=== PATIENT | female | born 2000 | race African-American/Black ===

== ENCOUNTER 2021-01-14 19:27 | Emergency (ER) | payer OTHER, MEDICAID ==
[~2021-01-14] VITALS: Ht 167.6 cm; Wt 95.3 kg
[2021-01-14 21:18] LABS: ABSOLUTE BASOPHILS 0.1 thou/uL (0.0-0.2); ABSOLUTE EOSINOPHILS 0.2 thou/uL (0.0-0.7); ABSOLUTE LYMPHOCYTES 2.5 thou/uL (0.8-5.3); ABSOLUTE MONOCYTES 0.8 thou/uL (0.0-1.2); ABSOLUTE NEUTROPHILS 6.4 thou/uL (1.6-8.1); BASOPHILS 0.8 %; EOSINOPHILS 2.1 %; LYMPHOCYTES 25.3 %; MCH 22.1 pg (26.0-34.0); MCHC 30.3 g/dL (28.0-37.0); MCV 72.9 fL (80.0-100.0); MONOCYTES 7.8 %; MPV 8.6 fl. (7.2-11.1); NUCLEATED RBCS 0 /100WBC; PLATELET COUNT* 401 thou/uL (150-400); RBC 4.54 mil/uL (4.20-5.00); RDW-CV 17.1 % (10.5-14.5)
[2021-01-14 21:24] LABS: CALCIUM 9.7 mg/dL (8.5-10.1); CREATININE 0.8 mg/dL (0.6-1.3); POTASSIUM 4.8 mmol/L (3.5-5.1)
[2021-01-14 22:35] LABS: PLATELET ESTIMATE ADEQUATE
[2021-01-14 22:36] LABS: ANISOCYTOSIS 1+
[2021-01-14 22:37] LABS: HYPOCHROMASIA 1+; MICROCYTES 1+
[2021-01-14] MEDS ORDERED: HYDROCODON-ACE1 EAC8 PO (23:12)
[2021-01-14 23:23] VITALS: BP 142/67
== END 2021-01-14 23:25 | disposition home or self-care (01) ==
LOC: M.ERS 19:27
PROVIDERS: Emergency Medicine
DX: H57.11 Ocular pain, right eye (principal)

== ENCOUNTER 2021-05-18 17:44 | Emergency (ER) | payer OTHER, MEDICAID ==
[~2021-05-18] VITALS: Ht 167.6 cm; Wt 95.3 kg
[~2021-05-18 17:44] MED LIST: HYDROCODON-ACE1 EAC8 PO
[2021-05-18 19:03] LABS: ABSOLUTE BASOPHILS 0.1 thou/uL (0.0-0.2); ABSOLUTE LYMPHOCYTES 2.6 thou/uL (0.8-5.3); ABSOLUTE MONOCYTES 1.3 thou/uL (0.0-1.2); ABSOLUTE NEUTROPHILS 8.6 thou/uL (1.6-8.1); BASOPHILS 0.4 %; EOSINOPHILS 0.3 %; HEMOGLOBIN 8.8 gm/dL (12.0-15.0); LYMPHOCYTES 20.6 %; MCH 20.2 pg (26.0-34.0); MCHC 30.4 g/dL (28.0-37.0); MCV 66.4 fL (80.0-100.0); MPV 8.5 fl. (7.2-11.1); NUCLEATED RBCS 0 /100WBC; PLATELET COUNT* 454 thou/uL (150-400); POLYS 68.7 %; RBC 4.37 mil/uL (4.20-5.00); RDW-CV 18.4 % (10.5-14.5); WBC 12.6 thou/uL (4.0-11.0)
[2021-05-18 19:06] LABS: CALCIUM 8.9 mg/dL (8.5-10.1); CREATININE 0.9 mg/dL (0.6-1.3); POTASSIUM 3.4 mmol/L (3.5-5.1)
[2021-05-18 19:10] LABS: URINE BILIRUBIN NEGATIVE (Negative); URINE BLOOD NEGATIVE (Negative); URINE CLARITY SL CLOUDY; URINE COLOR YELLOW; URINE GLUCOSE-RANDOM NEGATIVE (Negative); URINE KETONES 1+ (Negative); URINE LEUKOCYTES-REFLEX 1+ (Negative); URINE NITRITE-REFLEX NEGATIVE (Negative); URINE PROTEIN 1+ (Negative); URINE SPECIFIC GRAVITY >= 1.030 (1.005-1.030); URINE UROBILINOGEN 0.2 E.U./dl (0.2-1.0)
[2021-05-18 19:11] LABS: ALBUMIN 3.5 g/dL (3.4-5.0); TOTAL BILIRUBIN 0.3 mg/dL (<0.1-1.0); TOTAL PROTEIN 8.5 g/dL (6.4-8.2)
[2021-05-18 19:27] LABS: CASTS None Seen /LPF (None Seen); CRYSTALS None Seen /LPF (None Seen); MUCUS 0-3 Light strn/LPF (None Seen); SQUAMOUS >10 Many /LPF (0-3); URINE RBC 0-2 Rare /HPF (0-2); URINE WBC-REFLEX >25 Many /HPF (0-5)
[2021-05-18 19:48] LABS: ANISOCYTOSIS 1+; PLATELET ESTIMATE INCREASED
[2021-05-18 19:49] LABS: HYPOCHROMASIA 2+; MICROCYTES 1+
[2021-05-18] MEDS ORDERED: BENTYL 10 MG CA10 M1 PO (20:37)
[2021-05-18] MEDS ORDERED: IBUPROFEN 800800 M1 PO (20:37)
[2021-05-18 20:47] VITALS: BP 120/74
== END 2021-05-18 20:47 | disposition home or self-care (01) ==
LOC: M.ERS 17:44
PROVIDERS: Nurse Practitioner Family
DX: N83.201 Unspecified ovarian cyst, right side (principal); K59.00 Constipation, unspecified

== ENCOUNTER 2021-05-28 17:39 | Emergency (ER) | payer OTHER, MEDICAID ==
[~2021-05-28] VITALS: Ht 167.6 cm; Wt 95.3 kg
[~2021-05-28 17:39] MED LIST changes: +BENTYL 10 MG CA10 M1 PO; +IBUPROFEN 800800 M1 PO
[2021-05-28 17:48] VITALS: BP 125/67
[2021-05-28 18:48] LABS: URINE BILIRUBIN NEGATIVE (Negative); URINE BLOOD NEGATIVE (Negative); URINE COLOR YELLOW; URINE GLUCOSE-RANDOM NEGATIVE (Negative); URINE KETONES NEGATIVE (Negative); URINE LEUKOCYTES-REFLEX 1+ (Negative); URINE NITRITE-REFLEX NEGATIVE (Negative); URINE PROTEIN NEGATIVE (Negative); URINE UROBILINOGEN 0.2 E.U./dl (0.2-1.0)
[2021-05-28 18:49] LABS: URINE CLARITY CLOUDY
[2021-05-28 18:58] LABS: BACTERIA-REFLEX None Seen /HPF (None Seen); CASTS None Seen /LPF (None Seen); CRYSTALS None Seen /LPF (None Seen); MUCUS 0-3 Light strn/LPF (None Seen); SQUAMOUS 4-10 Moderate /LPF (0-3); URINE RBC None Seen /HPF (0-2); URINE WBC-REFLEX 0-5 Rare /HPF (0-5)
[2021-05-28] MEDS ORDERED: CEPHALEXIN500 MG PO (19:24)
[2021-05-28] MEDS ORDERED: PHENAZOPYRIDIN200 M2 PO (19:24)
--- NOTE | 2021-05-28 20:08 | NUR ---
RETURNED PHONE CALL TO [facility], SON, RIAN. GAVE HIM AN UPDATE. [phone]
[2021-05-28 20:10] LABS: ABSOLUTE BASOPHILS 0.1 thou/uL (0.0-0.2); ABSOLUTE LYMPHOCYTES 1.7 thou/uL (0.8-5.3); ABSOLUTE MONOCYTES 1.4 thou/uL (0.0-1.2); ABSOLUTE NEUTROPHILS 14.4 thou/uL (1.6-8.1); BASOPHILS 0.3 %; EOSINOPHILS 0.2 %; HEMATOCRIT 29.7 % (37.0-47.0); HEMOGLOBIN 8.8 gm/dL (12.0-15.0); LYMPHOCYTES 9.5 %; MCH 19.3 pg (26.0-34.0); MCHC 29.5 g/dL (28.0-37.0); MCV 65.4 fL (80.0-100.0); MONOCYTES 7.8 %; MPV 8.5 fl. (7.2-11.1); NUCLEATED RBCS 0 /100WBC; PLATELET COUNT* 402 thou/uL (150-400); POLYS 82.2 %; RBC 4.54 mil/uL (4.20-5.00); RDW-CV 17.9 % (10.5-14.5); WBC 17.5 thou/uL (4.0-11.0)
[2021-05-28 20:16] LABS: CALCIUM 8.6 mg/dL (8.5-10.1); CREATININE 0.8 mg/dL (0.6-1.3)
[2021-05-28 20:21] LABS: ALBUMIN 3.1 g/dL (3.4-5.0); TOTAL BILIRUBIN 0.3 mg/dL (<0.1-1.0); TOTAL PROTEIN 8.4 g/dL (6.4-8.2)
[2021-05-28 20:22] LABS: POTASSIUM 5.1 mmol/L (3.5-5.1)
[2021-05-28 23:09] VITALS: BP 112/67
== END 2021-05-28 23:00 | disposition short-term general hospital (02) ==
LOC: M.ERS 17:39 → M.TBA-ER 21:30 → M.ERS 21:30
PROVIDERS: Physician Assistant
DX: N73.9 Female pelvic inflammatory disease, unspecified (principal); Z20.822 Contact with and (suspected) exposure to COVID-19; A41.9 Sepsis, unspecified organism